=== PATIENT | female | born 1995 | race Hispanic/Latino ===

== ENCOUNTER 2024-11-07 21:48 | Emergency (ER) | payer SELFPAY ==
[~2024-11-07] VITALS: Ht 160 cm; Wt 67.1 kg
[2024-11-07 21:51] VITALS: BP 105/66; PULSE 92; RESP 20; TEMP 98.2
--- NOTE | 2024-11-07 22:00 | NUR ---
PER NOÉ HARTLEY SHE DID NOT WANT TO STAY. WENT TO TAKE PATIENT AMA FORM. PATIENT GONE.
--- NOTE | 2024-11-07 22:02 | NUR ---
AFTER SPEAKING WITH NAEEM REY, THE PATIENT OPTED TO GO TO [facility]. STATED SHE DID NOT WANT TO GO THROUGH THE TRANSFER PROCESS. TRIAGE NURSE SPOKE WITH PT ABOUT SIGNING AN AMA FORM. PT REFUSED TO SIGN AMA.
--- NOTE | 2024-11-07 22:14 | ERN ---
General Chief Complaint: OB<20 weeks gest. Stated Complaint: C/O ABD PAIN WITH TIGHTNESS, BACK PAIN Time Seen by MD: 22:01 Time Seen by Midlevel: 22:01 Source: patient History of Present Illness Initial Comments 28-year-old female who presents to the emergency department due to abdominal pain. Patient reports she is currently unknown how many weeks possibly between 19 at 22 weeks. Patient does not know her last menstrual period. Patient does does not have OBGYN. Denies any vaginal bleeding or further associated symptoms. Allergies: Coded Allergies: No Known Allergies (Unverified Allergy, Unknown, 11/07/24) Past Medical History Past Medical History: No Pertinent History Past Surgical History: None ROS Dictation Constitutional: Negative for fever,chills, and weight loss Eyes: Negative for injury, pain,redness, and discharge ENT: Negative for injury,pain or swelling Cardiovascular: Negative for chest pain, palpitations, and edema Respiratory: Negative for shortness of breath, cough, and wheezing, Abdomen/GI: Positive for abdominal pain Negative for nausea, vomiting, diarrhea, and constipation Back: Positive for back pain Negative for injury : Negative for painful urination, bleeding or discharge MS/Extremity: Negative for injury and deformity Skin: Negative for rash, and discoloration Neuro: Negative for headache, weakness, numbness, tingling, and seizure Psych: Negative for suicide ideation, homicidal ideation, and hallucinations Physical Exam Physical Exam Dictation General: awake, alert, no acute distress Head/Face: Normocephalic, atraumatic Eyes: PERRL, EOMI, normal conjunctiva ENT: oral cavity clear, oral mucosa moist Neck: Supple, normal range of motion Cardiovascular: RRR, normal S1/S2 Respiratory: No respiratory distress Skin: Warm, dry, normal turgor, no rash MS/Extremity: Pulses equal, no cyanosis, neurovascular intact, FROM Neuro: COAx4, GCS 15, strength 5/5, CN 2-12 intact, normal cerebellar exam, normal gait Psych: Normal behavior, mood, and affect normal MDM After patient was educated that there is no OBGYN available in the hospital she decided she did not want to be seen and left against medical advice. ED Course Vital Signs Date Time Temp Pulse Resp B/P (MAP) Pulse Ox O2 Delivery O2 Flow Rate FiO2 11/07/24 21:51 98.2 92 20 105/66 97 Room Air DX & DISP Disposition: AMA Departure Impression: Primary Impression: Left against medical advice Condition: Stable Referrals: SELF,REFERRAL (PCP) I performed the substantive portion of the visit. I have reviewed and personally made and approve the management plan that is documented in the notes by myself or the KRAIG. I acknowledge full responsibility for the patient's man agement plan. NOÉ CHILD Nov 07, 2024 22:14
== END 2024-11-07 22:16 | disposition left against medical advice (07) ==
LOC: EDH 21:48
DX: O26.892 Other specified pregnancy related conditions, second trimester (principal); R10.9 Unspecified abdominal pain; Z3A.19 19 weeks gestation of pregnancy
CPT/HCPCS: 99281